=== PATIENT | male | born 1955 | race African-American/Black ===

== ENCOUNTER → 2019-11-16 12:51 | Outpatient (CLI) | payer MEDICARE, OTHER, SELFPAY ==
--- NOTE | ~2019-11-16 | CT_ITS ---
EXAMINATION: CT ankle RT wo con DATE: 11/16/2019 13:27 INDICATION: Right ankle pain. TECHNIQUE: Computed tomography (CT) of the right ankle was performed without intravenous contrast. Au tomated exposure control and iterative reconstruction technique were employed. The dose-length produc t was 180.40 mGy-cm. COMPARISON: Right foot MRI 06/14/2016 FINDINGS: Bone alignment is normal. No fracture. There is severe osteoarthritis of the ankle joint wi th loose bodies. There is moderate osteoarthritis of subtalar joint. There is a pseudoarthrosis betwe en the calcaneus and distal fibula. There is severe osteoarthritis of talonavicular joint with loose bodies. There is mild osteoarthritis of some of the midfoot joints. IMPRESSION: 1. Polyarticular osteoarthritis. Reviewed, dictated and finalized at location A. DRY ASSISTANT
== END ==
PROVIDERS: PCP Family Medicine
DX: M15.9 Polyosteoarthritis, unspecified (principal)
CPT/HCPCS: 73700

== ENCOUNTER 2020-02-04 11:58 | Inpatient (IN) | payer MEDICARE, OTHER, SELFPAY ==
[2020-02-04] VITALS (11 sets, daily range): BP systolic 122–169; BP diastolic 68–84; PULSE 78–93; RESP 14–25; TEMP 37.1–37.4; O2SAT 89–100; BMI 27.8
--- NOTE | ~2020-02-04 | CT_ITS ---
EXAMINATION: CT abdomen pelvis w con DATE: 02/05/2020 14:31 INDICATION: Right upper and lower quadrant pain. History of melanoma. Appendicitis. Diverticulitis. TECHNIQUE: Computed tomography (CT) of the abdomen and pelvis was performed with 100 cc Omnipaque 350 intravenous contrast. The dose-length product was 667.45 mGy-cm. Automated exposure control and iter ative reconstruction technique were employed. COMPARISON: None. FINDINGS: Moderate right pleural effusion which is likely loculated. Heart size normal. Small left pl eural effusion, also likely loculated. Bilateral lower lobe airspace disease, pneumonia versus atelec tasis. Heart size normal. No significant vascular abnormality. There is a liver cyst right hepatic lobe. The spleen, pancreas, adrenal glands and right kidney are u nremarkable. There is a 3.5 cm left renal cyst. Bladder is decompressed. Colonic diverticulosis witho ut evidence for diverticulitis. There is a penile pump with reservoir in the left rectus region. No a bnormal pelvic masses or fluid collections. Moderate-severe lumbar spondylosis. Nonobstructive bowel gas pattern. There are surgical changes of appendectomy. IMPRESSION: 1. Bibasilar airspace disease, right greater than left, pneumonia versus atelectasis. 2: Bilateral pleural effusions, likely loculated, right greater than left. Reviewed, dictated and finalized at location A. IMPRESSION: 1. Bibasilar airspace disease, right greater than left, pneumonia versus atelec tasis. 2: Bilateral pleural effusions, likely loculated, right greater than left.
--- NOTE | ~2020-02-04 | XR_ITS ---
XR chest 1V 02/04/2020 17:37 Indication: Loculated pleural effusion Procedure: AP view of the chest Comparison: 02/04/2020 Findings: Decreased size right pleural effusion bibasilar airspace disease, right greater than left. Cardiomegaly. No pneumothorax. There are degenerative changes of the shoulders. Impression: 1: Decreased size right pleural effusion postthoracentesis. No pneumothorax. 2: Bibasilar airspace disease which may represent pneumonia and/or atelectasis. Reviewed, dictated and finalized at location A. Impression: 1: Decreased size right pleural effusion postthoracentesis. No pneumothorax. 2: Bibasilar airspace disease which may represent pneumonia and/or atelectasis .
--- NOTE | ~2020-02-04 | CT_ITS ---
EXAMINATION: CTA chest PE protocol DATE: 02/04/2020 13:55 INDICATION: Shortness of breath. TECHNIQUE: Computed tomography angiography (CTA) of the chest was performed with 100 mL Omnipaque-350 intravenous contrast timed to evaluate the pulmonary arteries. Coronal maximum intensity projection 3D-reconstructions were created by the technologist. Automated exposure control and iterative reconst ruction technique were employed. The dose-length product was 512.28 mGy-cm. COMPARISON: Chest single view 02/04/2020 FINDINGS: There is a moderate-sized loculated right pleural effusion. There is peripheral passive ate lectasis in right middle lobe and right lower lobe. There is mild scarring at the lung apices. There is a 4.1 x 2.1 cm peripheral mass in laterobasal segment left lower lobe. There is mild atelectasis i n left lower lobe and lingula. There is a trace left pleural effusion. Cardiomegaly is noted. There i s no pulmonary embolus. There is a 2.9 cm cyst in the liver. There is moderate thoracic spondylosis. Thoracic levoscoliosis is noted. IMPRESSION: 1. No pulmonary embolus. 2. Moderate-sized loculated right pleural effusion. 3. Mass in left lung lower lobe, likely pneumonia. Follow-up radiographs are recommended to confirm r esolution and exclude malignancy. 4. Cardiomegaly. Reviewed, dictated and finalized at location A. IMPRESSION: 1. No pulmonary embolus. 2. Moderate-sized loculated right pleural effusion. 3. Mass in left lung lower lobe, likely pneumonia. Follow-up radiographs are re commended to confirm resolution and exclude malignancy. 4. Cardiomegaly.
--- NOTE | ~2020-02-04 | US_ITS ---
EXAMINATION: US thoracentesis DATE: 02/04/2020 17:48 CDT INDICATION: Right pleural effusion TECHNIQUE: The procedure for an ultrasound-guided thoracentesis was discussed with the patient. Risk s and benefits were detailed, including risks of bleeding, infection, pneumothorax and pain. The pat ient verbalized understanding and agreed to proceed following written consent. A time and out was performed to verify patient's name, date of , and type of procedure. The lef t lower quadrant of the abdomen was prepped and draped in usual manner. 1% lidocaine was used for lo eric anesthesia. A catheter was inserted into the right chest under ultrasound guidance into the pleu ral fluid. The fluid was removed with vacuum assistance. All needles were removed. The patient tolerated the procedure without immediate complication.] FINDINGS: Limited images of the abdomen demonstrates a moderate amount of left pleural effusion. Tammy roximately 500 cc of blood-tinged liquid was removed. IMPRESSION: 1. Successful ultrasound-guided right thoracentesis with removal of 500 cc of blood-tinged fluid. Fl uid delivered to the laboratory for appropriate evaluation as indicated by the clinical service. Reviewed, dictated and finalized at location A. IMPRESSION: 1. Successful ultrasound-guided right thoracentesis with removal of 500 cc of blood-tinged fluid. Fluid delivered to the laboratory for appropriate evaluatio n as indicated by the clinical service.
--- NOTE | ~2020-02-04 | XR_ITS ---
EXAMINATION: XR chest 1V portable INDICATION: Shortness of breath TECHNIQUE: Portable AP chest at 1238 hours COMPARISON: 11/12/2008 FINDINGS: There are airspace opacities of the lung bases and right midlung zone. A small right pleura l effusion is present. There is no pneumothorax. The heart size is upper limits of normal for techniq ue. There is a questionable nodule of the left lung base. There are surgical clips in the right axill a. IMPRESSION: 1. Airspace opacities of the right mid and lower lung zones, consistent with atelectasis versus pneum onia. 2. Small right pleural effusion. 3. Questionable nodule of the left lung base. Further evaluation with CT of the chest is recommended. Reviewed, dictated and finalized at location A. IMPRESSION: 1. Airspace opacities of the right mid and lower lung zones, consistent with at electasis versus pneumonia. 2. Small right pleural effusion. 3. Questionable nodule of the left lung base. Further evaluation with CT of the chest is recommended.
--- NOTE | ~2020-02-04 | US_ITS ---
EXAMINATION:US venous doppler LE BI INDICATION:Elevated d-dimer TECHNIQUE: Multiple grayscale, color flow and Doppler images of the lower extremity deep venous syste ms were obtained and reviewed. COMPARISON:Ultrasound dated 03/10/2009 FINDINGS: The common femoral, superficial femoral and popliteal veins demonstrate normal respiratory variation, augmentation and compressibility. Color flow is also seen within the posterior tibial, pe roneal, greater saphenous and profunda veins. IMPRESSION: 1: No lower extremity deep venous thrombosis. Reviewed, dictated and finalized at location A.
--- NOTE | 2020-02-04 12:28 | ED.SOB ---
HPI - SOB/Dyspnea General Chief Complaint: Shortness of Breath/Dyspnea Stated Complaint: SOB Time Seen by Provider: 02/04/20 12:05 Source: patient Mode of arrival: ambulatory Limitations: no limitations History of Present Illness HPI Narrative: This is a 64 year old male that presents to the ER for shortness of breath x 2 days. Reports shortness of breath with exertion. Also reports for the last 5 days he has been having some upper abdominal discomfort, especially at night. Reports a mild cough. Denies fever, chest pain, sore throat, nausea, vomiting, diarrhea, dysuria or hematuria. Related Data Home Medications Medication Instructions Recorded Confirmed allopurinol 100 mg PO DAILY 02/04/20 02/04/20 amlodipine 10 mg PO BID 02/04/20 02/04/20 diclofenac sodium 75 mg PO DAILY 02/04/20 02/04/20 hydrochlorothiazide 25 mg PO DAILY 02/04/20 02/04/20 lisinopril 40 mg PO DAILY 02/04/20 02/04/20 metoprolol succinate 100 mg PO BID 02/04/20 02/04/20 oxycodone-acetaminophen 1 tablet PO Q6H PRN 02/04/20 02/04/20 Allergies Allergy/AdvReac Type Severity Reaction Status Date / Time No Known Allergies Allergy Unverified 07/15/17 11:51 Review of Systems Review of Systems: Narrative: CONSTITUTIONAL: Denies fever ENT: Denies rhinorrhea, congestion, sore throat CARDIOVASCULAR: Denies chest pain, or edema. RESPIRATORY: Reports cough and dyspnea. GASTROINTESTINAL: Reports abdominal pain. Denies nausea, vomiting, or diarrhea. GENITOURINARY: Denies dysuria or hematuria. All systems reviewed & are unremarkable except as noted in HPI and below PMFSH Past Medical History Medical History (Updated 02/04/20 @ 19:34 by Charity Culp PA-C) Chronic anemia Essential hypertension Gout Melanoma Excised from right hand. Osteoarthritis Surgical History Surgical History (Updated 02/04/20 @ 16:21 by Mercy Conti PA-C) History of bilateral knee arthroplasty History of melanoma excision Right hand. Status post rotator cuff repair Bilateral. Family History Family History (Updated 02/04/20 @ 17:51 by Jaky Rubin RN) Mother Hypertension Father Malignant neoplasm of prostate Social History Social History (Updated 02/04/20 @ 16:22 by Mercy Conti PA-C) Social History: The patient lives in [place] with his . Smoking status: Light tobacco smoker Tobacco type: cigars Additional smoking assessment comments: Patient states he smokes cigars occasionally Alcohol intake: never Substance use: never Gender identity (if verbalized by the patient): Male Spiritual care concerns: No Agree to blood products: Yes Exam Narrative: Exam Narrative: GENERAL: Well-appearing, well-nourished, and in no acute distress. HEAD: Normocephalic, atraumatic. EYES: EOMI. ENT: Nares clear, no rhinorrhea or epistaxis. Mucous membranes moist. Oropharynx without tonsillar hypertrophy exudate or other lesions. Bilateral TMs pearly leon non-bulging NECK: Supple. No adenopathy or masses. CHEST: Diminished in the RLL. Rales in the LLL. No respiratory distress. No wheezes or rhonchi HEART: Regular rate and rhythm. No murmur heard. Normal peripheral pulses. ABDOMEN: Soft, nontender, nondistended, normal active bowel sounds. EXTREMITIES: Normal range of motion. No edema. SKIN: Warm, dry, no rash. NEURO: No focal deficits. Alert and oriented x3. PSYCH: Normal mood and affect Course Consultations Consultation #1: Spoke with hospitalist about patient and work-up who accepts admission Date: 02/04/20 Consultation #2: Spoke with pulmonology about patient and workup who would like diagnostic thoracentesis and patient to be on broad spectrum antibiotics (Vanc/Emepenem/Azithro). He will consult Date: 02/04/20 Vital Signs Vital signs: Vital Signs Temperature 99.3 F 02/04/20 12:03 Pulse Rate 93 02/04/20 12:03 Respiratory Rate 22 H 02/04/20 12:03 Blood Pressure 169/84 H 02/04/20 12:03 Pulse Oximetry 95
[2020-02-04 12:52] LABS: Basophils Percent Auto 0.3 % (0.2-1.2); Eosinophils Absolute Auto 0.2 K/mm3 (0-0.3); Eosinophils Percent Auto 1.2 % (0-4.4); Hematocrit 33.7 % (42.0-52.0); Immature Granulocyte Absolute 0.14 K/mm3 (0.00-0.031); Lymphocytes Absolute Auto 0.64 K/mm3 (0.9-3.2); Lymphocytes Percent Auto 4.5 % (18.3-44.2); Mean Corpuscular HGB Conc 32.6 g/dl (32-36); Mean Corpuscular Hemoglobin 30.3 pg (26-34); Mean Corpuscular Volume 92.8 fl (80-100); Mean Platelet Volume 9.9 fl (7.4-10.4); Monocytes Absolute Auto 1.7 K/mm3 (0.1-0.6); Monocytes Percent Auto 11.7 % (2.6-8.5); Neutrophils Absolute Auto 11.5 K/mm3 (1.3-6.7); Neutrophils Percent Auto 81.3 % (45.5-73.1); Platelet Count Result 330 k/mm3 (150-375); Red Blood Count 3.63 M/mm3 (4.6-6.20); Red Cell Distribution Width 12.8 % (11.5-14.5); White Blood Count 14.2 K/mm3 (4.5-10.0)
--- NOTE | 2020-02-04 12:53 | ECG_ITS ---
Measurements Intervals [place] Rate: 92 P: 36 KS: 212 QRS: -13 QRSD: 116 T: 39 QT: 383 QTc: 474 Interpretive Statements SINUS RHYTHM WITH FIRST DEGREE AV BLOCK VENTRICULAR PREMATURE COMPLEX INCOMPLETE RIGHT BUNDLE BRANCH BLOCK BORDERLINE T WAVE ABNORMALITY- ANTERIOR LEADS BASELINE WANDER- I, II, AVR, AVL, AVF, V1-V3 ABNORMAL ECG Electronically Signed On 02-04-2020 16:23:14 CDT by Bridger Bee D.O.
[2020-02-04 13:07] LABS: Alanine Aminotransferase 19 U/L (4-50); Alkaline Phosphatase 134 U/L (38-126); Aspartate Amino Transferase 27 U/L (17-59); Bilirubin,Total 0.6 mg/dL (0.2-1.3); Blood Urea Nitrogen 16 mg/dL (9-20); Calcium 9.6 mg/dL (8.4-10.2); Carbon Dioxide 32 mmol/L (22-30); Chloride 98 mmol/L (98-107); Estimated CRCL calculation 54 ml/min; Estimated Glomerular Filt Rate > 60; Glucose 109 mg/dL (75-110); Potassium 3.7 mmol/L (3.4-5.0); Sodium 135 mmol/L (137-145)
[2020-02-04 13:08] LABS: Lactic Acid Reflex 1.9 mmol/L (0.7-2.1)
[2020-02-04 13:08] LABS: Lipase 32 U/L (23-300)
[2020-02-04 13:14] LABS: NT Pro B Type Natriuretic Pept 360 PG/ML (5-100)
[2020-02-04 13:20] LABS: D Dimer 3.81 ug/mL (<0.48)
[2020-02-04 13:22] LABS: Add Urine Microscopic? YES; Appearance Urine Clear (Clear); Bilirubin Urine Negative (Negative); Blood Urine Negative (Negative); Color Urine Yellow (Yellow); Glucose Urine UA Negative (Negative); Ketones Urine Negative (Negative); Leukocyte Esterase Ur Negative LEU/UL (Negative); Mucus Urine Rare /lpf; Nitrate Urine Negative (Negative); Protein Urine 2+ mg/dL (Negative); RBC Urine 0-2 /hpf (0-2); Specific Grav Ur 1.023 (1.001-1.035); Squamous Epithelial Cell Urine Rare /hpf (Few); WBC Urine 0-3 /hpf
[2020-02-04 14:21] LABS: Lactate Dehydrogenase 386 U/L (313-618)
[2020-02-04 14:51] LABS: CRP > 45.0 mg/dL (<1.0)
[2020-02-04] MEDS: ACETAMINOPHEN 500 MG TABLET 1000 MG PO (15:25)
[2020-02-04 16:20] LABS: INR 1.1; Prothrombin Time 13.9 Seconds (11.1-14.7)
[2020-02-04 16:21] LABS: Partial Thromboplastin Time 43.5 SECONDS (22.3-36.8)
--- NOTE | 2020-02-04 17:40 | PC.NURSE ---
This patient, Ritchie Keane Jr, was admitted to [facility] Surg Room 332-01. Patient/family oriented to hospital policies and general routines including ID bracelet, bed and alarms, visiting hours, pain management, procedures, bathroom and other care routines, personal items, smoking policy, room service/diet, and visiting hours. Valuables list has been completed. Information on how to activate the Rapid Response Team has been discussed. Patient/Family are encouraged to report perceived risks to care and to ask questions if they do not understand what they are told or what they should do.
--- NOTE | 2020-02-04 18:00 | PM.IMHP ---
H&P: HPI History of Present Illness Chief complaint: Shortness of breath. 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 For the past 3 days, he notes progressive dyspnea on lesser and lesser exertion as well as right lateral pleuritic chest pain. Chest x-ray showed a small right pleural effusion with airspace opacities in the right mid and lower lung zones consistent with atelectasis versus pneumonia as well as a questionable nodule at the left lung base. A subsequent CTA of the chest showed a moderate size, loculated right pleural effusion and notes that the possible left lower lung mass was likely pneumonia. To his knowledge, he has no history of cirrhosis or congestive heart failure. He told ER provider that he had a mild cough, but denies that to me. His appetite has been a bit decreased over the past couple of days, which she attributes to the pleuritic pain. No recent travel or sick contacts. Denies anosmia and dysgeusia. His weight has remained stable. He was treated for melanoma in 2000, and at that time he was told he probably had only 6 months to live as it was metastatic to the lymph nodes. He had close follow-up for 5 years, and felt that he was cancer free and he has not had follow-up since that time. No fever, chills, or sweats. He denies exertional chest pain, orthopnea, palpitations, and lower extremity edema. No history of venous thromboembolism. Denies obvious lymphadenopathy. He is status post thoracentesis at the time my evaluation, and reports improvement with his shortness of breath. Has only mild discomfort at the needle insertion site. Review of Systems Review of Systems: Narrative: Twelve systems were reviewed with pertinent positives and negatives as per HPI. No fever, chills, or sweats. No sinus congestion, rhinorrhea, otalgia, or odynophagia. No history of coronary artery disease or congestive heart failure. No orthopnea, PND, or lower extremity edema. No history of venous thromboembolism. Denies diarrhea. No dysuria. Except as documented, all other systems were reviewed and are negative. [facility] Past Medical History Medical History (Updated 02/04/20 @ 21:36 by Mercy Conti PA-C) Chronic anemia Essential hypertension Gout Melanoma Of the right 5th finger, which was completely excised as well as sentinel lymph node sampling, which was reportedly positive. He received chemotherapy for 1 year in 2000. Osteoarthritis Surgical History Surgical History (Updated 02/04/20 @ 21:38 by Mercy Conti PA-C) History of bilateral knee arthroplasty History of melanoma excision Resected in 2000, with 5th finger amputation and sentinel lymph node dissection. Status post rotator cuff repair Bilateral. Family History Family History Mother Hypertension Father Malignant neoplasm of prostate Social History Social History (Updated 02/04/20 @ 21:49 by Mercy Conti PA-C) Social History: Surrogate decision maker: Cathie Keane. Code status: Full code. Smoking status: Light tobacco smoker Tobacco type: cigars Additional smoking assessment comments: Smokes 5 cigars a week. Alcohol intake: never Substance use: never Additional living arrangements comments: Patient lives with in [place]. 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 Spiritual care concerns: No Agree to blood products: Yes Meds Home Medications and Allergies Home Medications Medication Instructions Recorded Confirmed Type allopurinol 100 mg PO DAILY 02/04/20 02/04/20 History amlodipine 10 mg PO BID 02/04/20 02/04/20 History diclofenac sodium 75 mg PO DAILY 02/04/20 02/04/20 H
[2020-02-04 18:31] LABS: Appearance Pleural Fluid Cloudy (Clear); Color Pleural Fluid Yellow (Colorless); Pleural fluid source Pleural fluid
[2020-02-04 18:33] LABS: Nucleated Cell Pleural Fluid 7365 /uL (0-1000)
[2020-02-04 18:40] LABS: Lymphocytes Pleural Fluid 3 %; Monocytes Pleural Fluid 3 %; Neutrophils Pleural Fluid 94 % (0-25); RBC Pleural Fluid 4514 /uL (0-0)
[2020-02-04] MEDS: AMLODIPINE BESYLATE 5 MG TABLET 10 MG PO (22:57)
[2020-02-04] MEDS: METOPROLOL SUCCINATE EXT REL 100 MG TABCR PO (22:58)
[2020-02-05] VITALS (14 sets, daily range): BP systolic 129–149; BP diastolic 50–89; PULSE 81–104; RESP 18; TEMP 37.3–38.7; O2SAT 90–96
[2020-02-05 05:39] LABS: Basophils Percent Auto 0.2 % (0.2-1.2); Eosinophils Absolute Auto 0.3 K/mm3 (0-0.3); Eosinophils Percent Auto 2.5 % (0-4.4); Hematocrit 32.1 % (42.0-52.0); Hemoglobin 10.6 g/dL (14.0-18.0); Immature Granulocyte Absolute 0.15 K/mm3 (0.00-0.031); Immature Granulocyte Percent A 1.2 % (0-0.5); Lymphocytes Absolute Auto 0.99 K/mm3 (0.9-3.2); Lymphocytes Percent Auto 7.6 % (18.3-44.2); Mean Corpuscular Volume 90.9 fl (80-100); Mean Platelet Volume 9.9 fl (7.4-10.4); Monocytes Absolute Auto 1.4 K/mm3 (0.1-0.6); Monocytes Percent Auto 11.1 % (2.6-8.5); Neutrophils Percent Auto 77.4 % (45.5-73.1); Platelet Count Result 315 k/mm3 (150-375); Red Blood Count 3.53 M/mm3 (4.6-6.20); Red Cell Distribution Width 12.9 % (11.5-14.5)
[2020-02-05 06:00] LABS: Blood Urea Nitrogen 11 mg/dL (9-20); Calcium 8.9 mg/dL (8.4-10.2); Carbon Dioxide 29 mmol/L (22-30); Chloride 101 mmol/L (98-107); Estimated CRCL calculation 75 ml/min; Estimated Glomerular Filt Rate > 60; Glucose 102 mg/dL (75-110); Potassium 3.4 mmol/L (3.4-5.0); Sodium 135 mmol/L (137-145)
[2020-02-05] MEDS: hydroCHLOROthiazide 25 MG TABLET PO (08:43)
[2020-02-05] MEDS: AMLODIPINE BESYLATE 5 MG TABLET 10 MG PO ×2 (08:43→21:04)
[2020-02-05] MEDS: lisinopriL 20 MG TABLET 40 MG PO (08:43)
[2020-02-05] MEDS: METOPROLOL SUCCINATE EXT REL 100 MG TABCR PO ×2 (08:43→21:04)
[2020-02-05] MEDS: allopurinoL 100 MG TABLET PO (08:43)
[2020-02-05 11:40] LABS: Lactate Dehydrogenase 371 U/L (313-618)
--- NOTE | 2020-02-05 12:59 | PM.CNPUL ---
Assessment and Plan Assessment and plan (1) Loculated pleural effusion: Code(s): J90 - Pleural effusion, not elsewhere classified Status: Acute Assessment and Plan: s/p thoracentesis. will evaluate chemistry, negative for malignant cells although yeild is 50% at best and hence malignancy has not been ruled out. - continue Carbapeneum and Vancomycin for 7 days - f/u CT scan in 6-7 days (2) Lung mass: Code(s): R91.8 - Other nonspecific abnormal finding of lung field Status: Acute Assessment and Plan: LLL lung mass. While this could be pneumonia, it is suspcious for malignancy especially in light of history of malignant melenoma. - recommend repeating CT chest next 02/11/20 after 6-7 days of broad spectrum antibiotics. If no improvement I would strongly recommend proceeding to CT guided biopsy to r/o malignancy - he should stay inpatient for antibiotic therapy. History of Present Illness History of Present Illness Consult date: 02/05/20 Chief complaint: Shortness of breath. Narrative: 64 y/o male presents with dyspnea on exertion but no cough, no chest tightness, no chills night sweats or fever or diarrhea, some right sided pleuritic chest pain for the past 3-4 days. He says pain started in the RL quadrant. He denies hemoptysis or weight loss. He has a history of right hand melenoma with lymphangetic spread to right arm diagnosed in 2000. It was treated with chemotherapy and went into remission according to him after a year of treatment. He continue to have monitoring and surviellance for a few years after that. he smokes 1 cigar/day and prior to that smoke cigaretes socially. He is also exposed to his 's second smoke for many years. CT chest yesterday showed a moderated sized pleural effusion with compressive ateleactasis of the RLL. It also showed a LLL dense mass about 4 cm in size. No prior CT scans or CXRs are available for comparison. He underwent a diagnostic US guided thoracentesis and approximately 500 cc of bloody fluid was drained and was negative for malignant cells. Other culture and chemistry studies are pending. Review of Systems Review of Systems: All systems reviewed & are unremarkable except as noted in HPI and below PMFSH Past Medical History Medical History (Updated 02/05/20 @ 13:10 by Taurus Urias MD) Chronic anemia Essential hypertension Gout Melanoma Of the right 5th finger, which was completely excised as well as sentinel lymph node sampling, which was reportedly positive. He received chemotherapy for 1 year in 2000. Osteoarthritis Surgical History Surgical History (Updated 02/04/20 @ 21:38 by Mercy Conti PA-C) History of bilateral knee arthroplasty History of melanoma excision Resected in 2000, with 5th finger amputation and sentinel lymph node dissection. Status post rotator cuff repair Bilateral. Family History Family History Mother Hypertension Father Malignant neoplasm of prostate Social History Social History (Updated 02/04/20 @ 21:49 by Mercy Conti PA-C) Social History: Surrogate decision maker: Cathie Keane. Code status: Full code. Smoking status: Light tobacco smoker Tobacco type: cigars Additional smoking assessment comments: Smokes 5 cigars a week. Alcohol intake: never Substance use: never Additional living arrangements comments: Patient lives with in [place]. 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 Spiritual care concerns: No Agree to blood products: Yes Meds Home Medications and Allergies Home Medications Medication Instructions Recorded Confirmed Type allopurinol 100 mg PO DAILY 02/04/20 02/04/20 History amlodipine 10 mg PO BID 02/04/20 02/04/20 History diclofenac sodium 75 mg PO DAILY 02/04/20 02/04/20 History hydro
[2020-02-05 13:30] LABS: SARS-CoV-2 RNA PCR Negative
--- NOTE | 2020-02-05 15:34 | PM.IMPN ---
Progress Note: A&P Assessment and Plan (1) Left lower lobe pneumonia: Qualifiers: Pneumonia type: due to unspecified organism Qualified Code(s): J18.9 - Pneumonia, unspecified organism Code(s): J18.9 - Pneumonia, unspecified organism Status: Acute Assessment and Plan: -----pneumonia versus malignancy. I spoke to the radiologist who believes this is pneumonia. His pleural pH is low and he may need a chest tube. Since we do not do those here I contacted [facility] which has accepted him to a medicine bed. Continue azithromycin, imipenem, and vancomycin at this time. COVID negative. Continue albuterol as needed. Patient's symptoms have significantly improved since his thoracentesis. White count trending down (2) Loculated pleural effusion: Code(s): J90 - Pleural effusion, not elsewhere classified Status: Acute Assessment and Plan: -----above. Plan to transfer to [facility]. I spoke with pulmonology (3) Cardiomegaly: Code(s): I51.7 - Cardiomegaly Status: Acute Assessment and Plan: -----will need echo but this was deferred until his COVID-19 testing was back. He does not appear fluid overloaded at this time. He should have this completed outpatient. BNP mildly elevated (4) Essential hypertension: Code(s): I10 - Essential (primary) hypertension Status: Acute Assessment and Plan: -----last blood pressure 149/71. Continue Norvasc, hydrochlorothiazide, metoprolol and lisinopril (5) Chronic anemia: Code(s): D64.9 - Anemia, unspecified Status: Acute Assessment and Plan: -------Hemoglobin and hematocrit are stable on review of previous labs. Will continue to monitor. Time Spent With Patient Time with patient: 25 - 35 minutes Subjective Date/time seen: 02/05/20 15:34 Interval history: Pt is a 64-year-old male here for pleural effusion and pneumonia. Patient was seen today and says is feeling better compared to yesterday but still feeling shortness breath at times. He is still coughing as well. He denies chest pain, abdominal pain, diarrhea, constipation, nausea or vomiting. He said he had his cancer treatments at [facility]. Review of Systems Review of Systems: All systems reviewed & are unremarkable except as noted in HPI and below Exam Narrative: Exam Narrative: General: Well developed well nourished patient in NAD in no acute distress HEENT: normocephalic Neck: supple Neuro: Alert and oriented x4 CV:RRR telemetry shows bigeminy occasionally. Resp: Decreased breath sounds in the right lobe. Abd: Soft, non distended. No pain to palpation. Positive bowel sounds Extremities: No swelling, erythema, or pain to palpation. Objective Data Vital Signs Vital Signs: Vital Signs - 24 hr 02/04/20 15:46 02/04/20 16:00 02/04/20 16:31 Temperature Pulse Rate 89 86 89 Respiratory Rate 19 24 H 22 H Blood Pressure 137/77 126/68 Pulse Oximetry 93 95 02/04/20 17:40 02/04/20 17:41 02/04/20 20:00 Temperature 99 F Pulse Rate 85 81 79 Respiratory Rate 14 20 Blood Pressure 122/82 127/76 Pulse Oximetry 95 90 02/04/20 22:00 02/04/20 22:58 02/05/20 00:00 Temperature 98.8 F Pulse Rate 80 78 84 Respiratory Rate 18 Blood Pressure 148/73 H Pulse Oximetry 100 02/05/20 02:00 02/05/20 04:00 02/05/20 05:20 Temperature 99.2 F Pulse Rate 85 81 Respiratory Rate 18 Blood Pressure 134/58 L Pulse Oximetry 95 96 02/05/20 07:34 02/05/20 08:00 02/05/20 08:43 Temperature 99.6 F Pulse Rate 82 104 H 98 Respiratory Rate 18 Blood Pressure 148/50 H Pulse Oximetry 96 96 02/05/20 10:00 02/05/20 14:00 Temperature 99.7 F H 99.6 F Pulse Rate 86 84 Respiratory Rate 18 18 Blood Pressure 129/89 149/71 H Pulse Oximetry 94 90 Intake/Output Intake/Output: Intake & Output 02/02/20 02/03/20 02/04/20 02/05/20 23:59 23:59 23:59 23:59 Intake Total 400 500 O
--- NOTE | 2020-02-05 18:35 | ECHO_ITS ---
Patient Info Name: Ritchie Keane Age: 64 years : 1955 Gender: Male Ht: 74 in Wt: 217 lbs BSA: 2.28 m2 HR: 81 bpm BP: 134 / 58 mmHg Heart Rhythm: Sinus Rhythm Technical Quality: Good Exam Date: 02/05/2020 4:07 PM Exam Location: [facility] Patient Status: Inpatient Admit Date: 02/04/2020 Staff Ordering Physician: Mercy Conti PA-C Chief Deputy Court Clerk: Ritchie Martinez RDCS Attending Provider: Zamzam Mike PA-C Referring Physician: Gallito ARANGO; Exam Type: CA echo doppler color flow Study Info Indications R06.02 - Shortness of breath Complete two-dimensional, color flow and Doppler transthoracic echocardiogram is performed. History/Risk Factors Cardiomegaly, HTN, SOB. Summary 1. Left ventricular chamber dimension is normal. 2. Left ventricular systolic function is normal, estimated at 60-65%. 3. The left ventricular diastolic function is grade II diastolic dysfunction. 4. E/e' 11 is mildly elevated. 5. Left atrial chamber dimension is mildly enlarged. 6. There is trace tricuspid valve regurgitation. 7. No pulmonary hypertension, estimated pulmonary arterial systolic pressure is 35 mmHg. Left Ventricle E/e' 11 is mildly elevated. Left ventricular chamber dimension is normal. Left ventricular systolic function is normal, estimated at 60-65%. The left ventricular diastolic function is grade II diastolic dysfunction. Right Ventricle Right ventricular chamber dimension is normal. Right ventricular systolic function is normal. Left Atria Left atrial chamber dimension is mildly enlarged. Right Atria Right atrial chamber dimension is normal. Aortic Valve The aortic valve is trileaflet. There is no aortic valve stenosis. There is no aortic valve regurgitation. Pulmonic Valve There is no pulmonic regurgitation. Mitral Valve There is no mitral valve stenosis. There is no mitral valve regurgitation. Tricuspid Valve There is trace tricuspid valve regurgitation. No pulmonary hypertension, estimated pulmonary arterial systolic pressure is 35 mmHg. Pericardium/Pleural There is no pericardial effusion. Inferior Vena Cava Normal inferior vena cava with >50% collapse upon inspiration consistent with normal right atrial pressure, 5 mmHg. Aorta The aortic root size at the sinus of Valsalva is normal. Left Ventricular Outflow Tract Name Value Normal LVOT 2D LVOT Diameter 2.2 cm LVOT Doppler LVOT Peak Gradient 9 mmHg LVOT Mean Gradient 4 mmHg LVOT VTI 27 cm LVOT VTI/AV VTI Ratio 0.8 LVOT Stroke Volume 102 ml LVOT CO 8.3 l/min LVOT CI 3.7 l/min/m2 Mitral Valve Name Value Normal MV Doppler
[2020-02-05] MEDS: ACETAMINOPHEN 325 MG TABLET 650 MG PO (23:31)
[2020-02-06] VITALS (16 sets, daily range): BP systolic 102–137; BP diastolic 54–85; PULSE 70–85; RESP 18–20; TEMP 37.2–38.3; O2SAT 94–98
[2020-02-06 06:03] LABS: Hematocrit 30.6 % (42.0-52.0); Hemoglobin 10.3 g/dL (14.0-18.0); Mean Corpuscular HGB Conc 33.7 g/dl (32-36); Mean Corpuscular Hemoglobin 30.4 pg (26-34); Mean Corpuscular Volume 90.3 fl (80-100); Mean Platelet Volume 9.7 fl (7.4-10.4); Platelet Count Result 361 k/mm3 (150-375); Red Blood Count 3.39 M/mm3 (4.6-6.20); Red Cell Distribution Width 13.2 % (11.5-14.5); White Blood Count 13.4 K/mm3 (4.5-10.0)
[2020-02-06 06:19] LABS: Blood Urea Nitrogen 12 mg/dL (9-20); Calcium 8.8 mg/dL (8.4-10.2); Carbon Dioxide 31 mmol/L (22-30); Chloride 97 mmol/L (98-107); Estimated CRCL calculation 63 ml/min; Estimated Glomerular Filt Rate > 60; Glucose 101 mg/dL (75-110); Magnesium 2.5 mg/dL (1.6-2.3); Potassium 3.2 mmol/L (3.4-5.0); Sodium 133 mmol/L (137-145)
[2020-02-06] MEDS: ACETAMINOPHEN 325 MG TABLET 650 MG PO (06:56)
[2020-02-06] MEDS: METOPROLOL SUCCINATE EXT REL 100 MG TABCR PO ×2 (08:02→20:28)
[2020-02-06] MEDS: hydroCHLOROthiazide 25 MG TABLET PO (08:02)
[2020-02-06] MEDS: allopurinoL 100 MG TABLET PO (08:02)
[2020-02-06] MEDS: lisinopriL 20 MG TABLET 40 MG PO (08:03)
[2020-02-06] MEDS: AMLODIPINE BESYLATE 5 MG TABLET 10 MG PO ×2 (08:05→20:29)
[2020-02-06] MEDS: POTASSIUM CHLORIDE 20 MEQ TABLET 40 MEQ PO (09:37)
[2020-02-06] MEDS: INDOMETHACIN 25 MG CAPSULE PO ×2 (10:50→20:29)
[2020-02-06 12:48] LABS: Vancomycin Trough 13.4 ug/mL (10.0-20.0)
--- NOTE | 2020-02-06 15:46 | PM.PNPUL ---
Progress Note: A&P Assessment and Plan (1) Loculated pleural effusion: Code(s): J90 - Pleural effusion, not elsewhere classified Status: Acute Assessment and Plan: Will need small bore chest tube place with intrapleural TPA. I could do this procedure but I'm told we may not have all the resources to do so here and hence the patient is being transferred to [facility] (2) Bilateral pneumonia: Code(s): J18.9 - Pneumonia, unspecified organism Status: Acute Assessment and Plan: Continue Vancomycin, Carbapenem and Azithromycin for 7-10 days. Will need f/u CT chest next week Time Spent With Patient Time with patient: 25 - 35 minutes Subjective Date/time seen: 02/06/20 15:46 Interval history: Going to [facility] today. Will need small bore chest tube with intrapleural TPA which I'm told is difficult to do here. Review of Systems Review of Systems: All systems reviewed & are unremarkable except as noted in HPI and below Exam Const: General: no acute distress and uncomfortable Other: complains of RLQ and RUQ pain radiating to right flank area HENMT: Mouth: Yes moist mucous membranes Eyes: General: appearance normal, both eyes and all related structures Neck: Neck: supple and no JVD Resp: Auscultation: no crackles, no rales, no rhonchi, no wheezes and diminished lung sounds Cardio: Rate: regular rate Rhythm: regular rhythm Heart sounds: no gallops and no murmurs GI: GI Palp: Yes Soft to palpation Auscultation: normal bowel sounds Skin: General skin exam: normal color and no rashes or lesions noted Neuro: General: gait normal Speech: normal speech Extrem: General: normal to inspection and no pedal edema Right upper extremity: edema (chronic RUE lymphedema ) Psych: Mental Status: mental status grossly normal Affect: normal affect Objective Data Vital Signs Vital Signs: Vital Signs - 24 hr 02/05/20 16:00 02/05/20 21:04 02/05/20 22:00 Temperature 38.7 C H Pulse Rate 81 84 85 Respiratory Rate 18 Blood Pressure 142/71 H Pulse Oximetry 93 02/05/20 22:30 02/05/20 23:31 02/06/20 00:00 Temperature 38.7 C H Pulse Rate 81 83 Respiratory Rate Blood Pressure Pulse Oximetry 02/06/20 00:35 02/06/20 02:00 02/06/20 04:00 Temperature 37.6 C 37.2 C Pulse Rate 70 70 Respiratory Rate 18 Blood Pressure 102/54 L Pulse Oximetry 95 02/06/20 06:00 02/06/20 06:56 02/06/20 08:00 Temperature 38.3 C H 38.3 C H Pulse Rate 83 83 Respiratory Rate 20 20 Blood Pressure 130/75 Pulse Oximetry 94 94 02/06/20 10:00 02/06/20 12:00 02/06/20 14:00 Temperature 37.2 C 37.2 C Pulse Rate 85 79 76 Respiratory Rate 18 18 Blood Pressure 129/75 127/72 Pulse Oximetry 98 94 Intake/Output Intake/Output: Intake & Output 02/03/20 02/04/20 02/05/20 02/06/20 23:59 23:59 23:59 23:59 Intake Total 400 2880 1190 Output Total 500 1200 820 Balance -100 1680 370 Meds/Results Medications: Active Medications Generic Name Dose Route Start Last Admin Trade Name Freq PRN Reason Stop Dose Admin Acetaminophen 650 mg 02/05/20 23:05 02/06/20 06:56 Tylenol Tablet PO 650 mg Q6H PRN Administration Pain or Fever Albuterol 2 puff 02/04/20 21:47 Proventil Hfa INHALATION QIDRT PRN Shortness Of Breath Allopurinol 100 mg 02/05/20 08:00 02/06/20 08:02 Zyloprim PO 100 mg DAILY@0800 [facility] Administration Amlodipine Besylate 10 mg 02/05/20 09:00 02/06/20 08:05 Norvasc PO 5 mg Q12HR RADHA Administration Hydrochlorothiazide 25 mg 02/05/20 09:00 02/06/20 08:02 Hydrochlorothiazide PO 25 mg DAILY [facility] Administration Imipenem/Cilastatin Sodium 500 mg in 100 mls @ 300 mls/hr 02/04/20 21:50 02/06/20 11:43 Primaxin 500 Mg/D5w 100 Ml IVPB Infused Q6HR [facility] Infusion Vancomycin HCl 1,750 mg in 500 mls @ 250 mls/hr 02/07/20 00:00 Vancomycin 1,750 Mg/D5w 500 Ml IVPB Q12H [facility] Indomethacin 25 mg
--- NOTE | 2020-02-06 16:11 | PM.TDS ---
Transfer Discharge Sum: Prov Provider Date of admission: 02/04/20 16:08 Primary care physician: Kathleen Artis, Admitting clinician: Junior Michel MD Consults: 02/04/20 16:09 Consult to Physician Routine Comment: Consulting Provider: Taurus Urias Reason for consultation: pleural effusion, pneumonia Has provider been notified: Yes Attending physician on discharge: Med Oates Discharging clinician: Zamzam Mike Receiving physician/facility: [facility]-unknown physician DS: Diagnosis Admitting Diagnosis Admitting Diagnosis: Pneumonia, unspecified organism Discharge Diagnosis (1) Left lower lobe pneumonia: Qualifiers: Pneumonia type: due to unspecified organism Qualified Code(s): J18.9 - Pneumonia, unspecified organism Code(s): J18.9 - Pneumonia, unspecified organism Status: Acute Assessment and Plan: -----pneumonia versus malignancy. I spoke to the radiologist who believes this is pneumonia. His pleural pH is low and he may need a chest tube. Since we do not do those here I contacted [facility] which has accepted him to a medicine bed. He was given azithromycin, imipenem, and vancomycin. COVID negative. No growth so far on micro. Pt continues to run a fever 100.0 at transfer. Patient's symptoms have significantly improved since his thoracentesis but still present. pt was transfered in stable condition to [facility]. Pt has a hx of melanoma and got his cancer treatment therapy. Pleural Cytology negative for malignancy. (2) Loculated pleural effusion: Code(s): J90 - Pleural effusion, not elsewhere classified Status: Acute Assessment and Plan: -----above. (3) Cardiomegaly: Code(s): I51.7 - Cardiomegaly Status: Acute Assessment and Plan: -----echo completed, systolic function normal with grade 2 diastolic dysfunction. No pulmonary hypertension. (4) Essential hypertension: Code(s): I10 - Essential (primary) hypertension Status: Acute Assessment and Plan: -----last blood pressure 137/69. Continue Norvasc, hydrochlorothiazide, metoprolol and lisinopril (5) Chronic anemia: Code(s): D64.9 - Anemia, unspecified Status: Acute Assessment and Plan: -------Hemoglobin and hematocrit are stable on review of previous labs. Will continue to monitor. Transfer Discharge Sum: Med Medications Active and Home Medications: Home Medications allopurinol 100 mg PO DAILY 02/04/20 [History Confirmed 02/04/20] amlodipine 10 mg PO BID 02/04/20 [History Confirmed 02/04/20] diclofenac sodium 75 mg PO DAILY 02/04/20 [History Confirmed 02/04/20] hydrochlorothiazide 25 mg PO DAILY 02/04/20 [History Confirmed 02/04/20] lisinopril 40 mg PO DAILY 02/04/20 [History Confirmed 02/04/20] metoprolol succinate 100 mg PO BID 02/04/20 [History Confirmed 02/04/20] oxycodone-acetaminophen 1 tablet PO Q6H PRN 02/04/20 [History Confirmed 02/04/20] Active Medications Acetaminophen (Tylenol Tablet) 650 mg PO Q6H PRN PRN Reason: Pain or Fever Last Admin: 02/06/20 06:56 Dose: 650 mg Documented by: Albuterol (Proventil Hfa) 2 puff INHALATION QIDRT PRN PRN Reason: Shortness Of Breath Allopurinol (Zyloprim) 100 mg PO DAILY@0800 RAD[facility] Last Admin: 02/06/20 08:02 Dose: 100 mg Documented by: Amlodipine Besylate (Norvasc) 10 mg PO Q12HR RADHA Last Admin: 02/06/20 08:05 Dose: 5 mg Documented by: Hydrochlorothiazide (Hydrochlorothiazide) 25 mg PO DAILY RADHA Last Admin: 02/06/20 08:02 Dose: 25 mg Documented by: Imipenem/Cilastatin Sodium (Primaxin 500 Mg/D5w 100 Ml) 500 mg in 100 mls @ 300 mls/hr IVPB Q6HR RADHA Last Infusion: 02/06/20 11:43 Dose: Infused Documented by: Vancomycin HCl (Vancomycin 1,750 Mg/D5w 500 Ml) 1,750 mg in 500 mls @ 250 mls/hr IVPB Q12H [facility] Indomethacin (Indocin) 25 mg PO TIDWM PRN PRN Reason: pluretic pain Last Admin: 02/06/20 10:50 Dose: 25 mg Documen
--- NOTE | 2020-02-06 18:04 | PC.NURSE ---
Maritza Bray attempted to locate patients lost phone. She called dietary, housekeeping and checked in patients room and the room they were previously in. The phone was not located.
[2020-02-06 18:06] LABS: Glucose Pleural Fluid 40 mg/dL; LDH Pleural Fluid 1960 U/L; Total Protein Pleural Fluid 4.5 g/dL
[2020-02-07] VITALS: PULSE 77
[2020-02-08 21:02] LABS: Albumin Pleural Fluid 2.2 g/dL
== END 2020-02-07 00:20 | disposition short-term general hospital (02) | DRG 194 ==
LOC: ANHED 16:13 → ANH3MEDSUR 16:34
PROVIDERS: Physician Assistant; Admitting Provider Family Medicine; Emergency Provider Family Medicine; PCP Family Medicine; Visit Provider Internal Medicine
DX: J18.9 Pneumonia, unspecified organism (principal); J90 Pleural effusion, not elsewhere classified; D64.9 Anemia, unspecified; I10 Essential (primary) hypertension; I51.7 Cardiomegaly; M10.9 Gout, unspecified; M19.90 Unspecified osteoarthritis, unspecified site; F17.290 Nicotine dependence, other tobacco product, uncomplicated; Z20.828 Contact with and (suspected) exposure to other viral communicable diseases; Z96.653 Presence of artificial knee joint, bilateral; Z85.820 Personal history of malignant melanoma of skin; Z85.89 Personal history of malignant neoplasm of other organs and systems; Z89.029 Acquired absence of unspecified finger(s)
CPT/HCPCS: 32555; 36415; 71045; 71275; 74177; 80048; 80053; 80202; 81001; 82042; 82728; 82945; 83605; 83615; 83690; 83735; 83880; 83986; 84157; 85025; 85027; 85380; 85610; 85730; 86140; 87040; 87070; 87075; 87205; 87635; 87804; 88104; 88108; 88305; 89051; 93005; 93306; 93970; 96365; 96367; 99285; A9270; J0456; J0696; J0743; J3370; Q9967; U0003

== ENCOUNTER 2022-02-15 08:25 | Outpatient (CLI) | payer MEDICARE, SELFPAY ==
--- NOTE | ~2022-02-15 | XR_ITS ---
XR chest 2V DATE: 02/15/2022 08:59 INDICATION: Hemoptysis TECHNIQUE: PA and lateral views COMPARISON: 02/04/2020 AP chest 02/04/2020 CTA chest 11/12/2008 PA and lateral chest FINDINGS: There is chronic blunting of the right costophrenic angle. Cardiac magnet. Mild aortic unfo lding. No pulmonary infiltrate or consolidation, pleural effusion or pulmonary vascular congestion or pneumo thorax is detected. Surgical clips, right axillary area. Degenerative spurring and minimal scoliosis of thoracic spine. Bilateral rotator cuff atrophy. IMPRESSION: No active pulmonary disease Cardiomegaly Chronic right costophrenic angle blunting Reviewed, dictated and finalized at location A.
== END 2022-02-15 08:26 | disposition home or self-care (01) ==
PROVIDERS: PCP Family Medicine; Visit Provider Physician Assistant
DX: R04.2 Hemoptysis (principal); I51.7 Cardiomegaly
CPT/HCPCS: 71046

== ENCOUNTER → 2022-05-18 02:57 | Outpatient (CLI) | payer MEDICARE, SELFPAY ==
[2022-05-18 11:20] LABS: SARS-CoV-2 RNA PCR Negative
== END ==
PROVIDERS: PCP Family Medicine; Visit Provider Family Medicine
DX: Z20.822 Contact with and (suspected) exposure to COVID-19 (principal)
CPT/HCPCS: C9803; U0003; U0005

== ENCOUNTER 2022-08-28 16:50 | Emergency (ER) | payer MEDICARE, SELFPAY ==
--- NOTE | 2022-08-28 16:58 | ED.DENTAL ---
HPI - Dental/Oral General Chief complaint: Dental/Oral Stated complaint: rt side ear and jaw pain Time Seen by Provider: 08/28/22 16:58 Source: patient Mode of arrival: ambulatory Limitations: no limitations History of Present Illness HPI Narrative: Mr. Keane is a 67-year-old male patient presenting to clinic today with complaints of right-sided ear and jaw pain times 2-3 day. He reports no known injury. Reports that the pain is in the right upper jaw and radiating into the ear and down the jawline. Pain is worse with chewing. He denies any dental pain. He reports that the pain got worse today where he feels as though he can not eat anything due to the pain. Stated he tried some chewing gum yesterday and this improved some Related Data Home Medications Medication Instructions Recorded Confirmed allopurinol 100 mg tablet 100 mg PO DAILY 02/04/20 02/04/20 amlodipine 10 mg tablet 10 mg PO BID 02/04/20 02/04/20 diclofenac sodium 75 mg 75 mg PO DAILY 02/04/20 02/04/20 tablet,delayed release hydrochlorothiazide 25 mg tablet 25 mg PO DAILY 02/04/20 02/04/20 lisinopril 40 mg tablet 40 mg PO DAILY 02/04/20 02/04/20 metoprolol succinate 100 mg 100 mg PO BID 02/04/20 02/04/20 tablet,extended release 24 hr oxycodone-acetaminophen 10 mg-325 1 tablet PO Q6H PRN Pain 02/04/20 02/04/20 mg tablet Allergies Allergy/AdvReac Type Severity Reaction Status Date / Time No Known Allergies Allergy Unverified 08/10/20 17:20 Review of Systems Review of Systems: Pertinent positives per HPI. Patient denies any fever, chills, rash, headache, visual changes, dizziness, cough, shortness of breath, chest pain, palpitations, nausea, vomiting, diarrhea, constipation, abdominal pain, or any urinary issues. [facility] Past Medical History Medical History Chronic anemia Essential hypertension Gout Melanoma Of the right 5th finger, which was completely excised as well as sentinel lymph node sampling, which was reportedly positive. He received chemotherapy for 1 year in 2000. Osteoarthritis Surgical History Surgical History History of bilateral knee arthroplasty History of melanoma excision Resected in 2000, with 5th finger amputation and sentinel lymph node dissection. Status post rotator cuff repair Bilateral. Family History Family History Mother Hypertension Father Malignant neoplasm of prostate Social History Social History Social History: Surrogate decision maker: Cathie Keane. Code status: Full code. Smoking status: Light tobacco smoker Tobacco type: cigars Additional smoking assessment comments: Smokes 5 cigars a week. Alcohol intake: never Substance use: never Additional living arrangements comments: Patient lives with in [place]. 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 Spiritual care concerns: No Agree to blood products: Yes Comments At the time of my signature, I reviewed and agree with the nursing past medical, surgical, social, and family history. There is no relevant family history pertinent to the patient complaint. Exam Narrative: General: Well-developed, well nourished, in no apparent distress Head: Normocephalic, atraumatic Eyes: Pupils equally round and reactive to light bilaterally, EOM intact, sclera and conjunctive clear, no discharge, lids normal Ears: TMs intact and clear, ear canals clear, no drainage, grossly hearing normal. Nose: Nares patent, no discharge, no inflammation, no sinus tenderness. Mouth: Oral pharynx without lesions or masses, good dentition, MMM. Tenderness to palpation over the TMJ joint, no crepitus felt with opening and closing of th
[2022-08-28 17:13] VITALS: BP 148/74; PULSE 74; RESP 16; TEMP 36.8; O2SAT 99
== END 2022-08-28 17:13 | disposition home or self-care (01) ==
PROVIDERS: Emergency Provider Nurse Practitioner Family; PCP Family Medicine
DX: M26.601 Right temporomandibular joint disorder, unspecified (principal); F17.290 Nicotine dependence, other tobacco product, uncomplicated; I10 Essential (primary) hypertension; M10.9 Gout, unspecified; M19.90 Unspecified osteoarthritis, unspecified site
CPT/HCPCS: 99213; G0463

== ENCOUNTER → 2023-04-18 10:41 | Outpatient (CLI) | payer MEDICARE, SELFPAY ==
--- NOTE | ~2023-04-18 | XR_ITS ---
Lumbosacral Spine: AP and lateral views Clinical History: Pain Findings: There is 26 degree dextroscoliosis of the lumbar spine. No fracture or subluxation evident otherwise. There is severe degenerative disc narrowing at L2-L3, L3-L4, L4-L5, and L5-S1. There is ad vanced facet arthropathy at L4-L5 and L5-S1. The intervertebral disc spaces are preserved. The sacro iliac joints are normally outlined. Impression: Moderate to advanced degenerative spondylosis, as detailed above. 26 degree dextroscoliosis. Reviewed, dictated and finalized at location M. Impression: Moderate to advanced degenerative spondylosis, as detailed above. 26 degree dextroscoliosis.
--- NOTE | ~2023-04-18 | XR_ITS ---
AP view of the pelvis and AP and lateral views of the right hip Clinical history: Pain Findings: No acute fracture or dislocation is seen. Osseous alignment is anatomic. Bilateral hip and SI joint spaces are preserved. Soft tissues are unremarkable. Impression: No significant abnormality is seen. Reviewed, dictated and finalized at [facility]. Impression: No significant abnormality is seen.
--- NOTE | ~2023-04-18 | XR_ITS ---
Right Hand Technique: PA, oblique, and lateral views were obtained. Clinical History: Pain COMPARISON: 05/02/2017 Findings: No acute fracture is seen. Status post prior amputation of the fifth digit, unchanged. Ther e is mild degenerative change of the third and fourth PIP joints. There is moderate degenerative heredia ge of the interphalangeal joint of the thumb and the first MCP joint. There is probable malalignment of the carpal bones, with the capitate overlapping the lunate on the PA projection.. Soft tissues are unremarkable. Impression: No acute fracture. Malalignment of the carpal bones and the wrist. Questionable perilunate dislocation. Consider dedicat ed wrist radiographs for further evaluation. Prior fifth digit amputation, unchanged. Reviewed, dictated and finalized at location M. Impression: No acute fracture. Malalignment of the carpal bones and the wrist. Questionable perilunate disloca tion. Consider dedicated wrist radiographs for further evaluation. Prior fifth digit amputation, unchanged.
== END ==
PROVIDERS: PCP Family Medicine; Visit Provider Family Medicine
DX: M79.641 Pain in right hand (principal); M25.551 Pain in right hip; M54.50 Low back pain, unspecified; M43.06 Spondylolysis, lumbar region; M41.87 Other forms of scoliosis, lumbosacral region; Z89.021 Acquired absence of right finger(s)
CPT/HCPCS: 72100; 73130; 73502

== ENCOUNTER 2024-10-31 09:25 | Emergency (ER) | payer OTHER, MEDICARE, SELFPAY ==
--- NOTE | ~2024-10-31 | XR_ITS ---
XR sacrum coccyx min 2V DATE: 10/31/2024 10:28 INDICATION: Patient fell on tailbone last night. Pain. TECHNIQUE: AP, angled AP and lateral views COMPARISON: None FINDINGS: There is dextroscoliosis of the lumbar spine and severe degenerative disc disease at L4-5 a nd L5-S1, moderately severe degenerative disc disease at L3-4. Normal alignment of the pubic symphysis and sacroiliac joints. No sacral or coccygeal fracture or bone destruction is detected. IMPRESSION: Dextroscoliosis and multilevel degenerative disease of the lumbar and lumbosacral spine No sacral or coccygeal fracture is detected Reviewed, dictated and finalized at location A. [employer] IMPRESSION: Dextroscoliosis and multilevel degenerative disease of the lumbar a nd lumbosacral spine No sacral or coccygeal fracture is detected
--- NOTE | ~2024-10-31 | XR_ITS ---
XR wrist RT min 3V DATE: 10/31/2024 10:28 INDICATION: Patient fell last night. Pain and swelling right wrist. TECHNIQUE: 4 views COMPARISON: 04/18/2023 right wrist FINDINGS: There is prominent diffuse soft tissue swelling of the right wrist. 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 There is severe radial navicular joint space narrowing. T here is severe osteoarthritis at the first metacarpophalangeal and first interphalangeal joints. Status post amputation of the fifth metacarpal bone and digit. No recent fracture or dislocation, periosteal reaction or bone destruction is noted. Osteopenia. IMPRESSION: Status post amputation of the fifth metacarpal and fifth digit Scapholunate dissociation No recent fracture or dislocation is detected Polyarticular osteoarthritis, involving particularly the radiocarpal, first metacarpophalangeal and i nterphalangeal joints Reviewed, dictated and finalized at location A. [employer] IMPRESSION: Status post amputation of the fifth metacarpal and fifth digit Scapholunate dissociation No recent fracture or dislocation is detected Polyarticular osteoarthritis, involving particularly the radiocarpal, first met acarpophalangeal and interphalangeal joints
[2024-10-31 09:54] VITALS: BP 166/84; PULSE 74; RESP 18; TEMP 36.6; O2SAT 98
--- NOTE | 2024-10-31 10:07 | ED_ITS ---
HPI - Extremity Injury (Upper) General Chief Complaint: Extremity Injury, Upper Stated Complaint: INJURED R WRIST/BOTH ARMS/TAILBONE/HIP Time Seen by Provider: 10/31/24 10:07 Source: patient Mode of arrival: ambulatory Limitations: no limitations History of Present Illness HPI narrative: 69 yo M presents with c/o pain to bilateral shoulders, R wrist and tailbone. Fell 10/31 in icy parking lot. Slipped near a lightpole and landed on his back. Somehow hurt his wrist. Reports both shoulders are aching but has normal ROM to L shoulder and R shoulder ROM at baseline, has rotator cuff tear. R wrist continues to hurt but swelling has decreased. Low back is tight, painful when sitting. Ambulatory with steady gait. No loss of bowel or bladder. Has been taking tylenol at home to treat pain. Did not his head, no LOC. all Systems reviewed and negative except as noted above. Related Data Home Medications ?Medication ?Instructions ?Recorded ?Confirmed ?Last Taken ?Type allopurinol 100 mg tablet 100 mg PO DAILY 02/04/20 10/31/24 Unknown History amlodipine 10 mg tablet 10 mg PO BID 02/04/20 10/31/24 Unknown History diclofenac sodium 75 mg 75 mg PO DAILY 02/04/20 10/31/24 Unknown History tablet,delayed release hydrochlorothiazide 25 mg tablet 25 mg PO DAILY 02/04/20 10/31/24 Unknown History lisinopril 40 mg tablet 40 mg PO DAILY 02/04/20 10/31/24 Unknown History metoprolol succinate 100 mg 100 mg PO BID 02/04/20 10/31/24 Unknown History tablet,extended release 24 hr Allergies Allergy/AdvReac Type Severity Reaction Status Date / Time No Known Allergies Allergy Verified 10/31/24 09:53 Review of Systems Review of Systems: CONSTITUTIONAL: Denies fever, chills, or sweats. EYES: Denies visual changes, redness, or discharge. ENT: Denies rhinorrhea, congestion, sore throat, or otalgia. CARDIOVASCULAR: Denies chest pain, palpitations, or edema. RESPIRATORY: Denies cough or dyspnea. GASTROINTESTINAL: Denies abdominal pain, nausea, vomiting, or diarrhea. GENITOURINARY: Denies dysuria or hematuria. SKIN: Denies rash or itching. MUSCULOSKELETAL: reports low/ tailbone back pain, right wrist pain, bilateral shoulder pain. NEUROLOGIC: Denies headache, numbness, or weakness. PSYCHIATRIC: Denies anxiety or depression. All other systems reviewed are negative, except as documented in HPI. [facility] Past Medical History Medical History Chronic anemia Essential hypertension Gout Melanoma Of the right 5th finger, which was completely excised as well as sentinel lymph node sampling, which was reportedly positive. He received chemotherapy for 1 year in 2000. Osteoarthritis Surgical History Surgical History History of bilateral knee arthroplasty History of melanoma excision Resected in 2000, with 5th finger amputation and sentinel lymph node dissection. Status post rotator cuff repair Bilateral. Family History Family History Mother Hypertension Father Malignant neoplasm of prostate Social History Social History Social History: Surrogate decision maker: Cathie Keane. Code status: Full code. Smoking status: Light tobacco smoker Tobacco type: cigars Additional smoking assessment comments: Smokes 5 cigars a week. Alcohol intake: never Substance use: never Additional living arrangements comments: Patient lives with in [place]. 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 Spiritual care concerns: No Agree to blood products: Yes Comments At time of signature, agree with nursing past medical, surgical, social and family history. There is no relevant family history pertinent to the presenting complaint. Exam Narrative: GENERAL: This is a well-nourished, well-developed patient, in no apparent distress. HEAD: normocephalic, atraumatic. EYES: PERRL. Sclera clear/white. Vision is grossly intact. EARS: External ears normal NOSE: External nose normal NECK: Neck supple, non-tender without lymphadenopathy, masses or thyromegaly. CARDIOVASCULAR: Regular rate and rhythm without murmurs, gallops, or rubs. RESPIRATORY: Clear to auscultation. Breath sounds equal bilaterally. No wheezes, rales, or rhonchi. SKIN: warm, Dry, intact with no suspicious lesions or rash, good texture and turgor. NEURO: awake, alert, and oriented to person, place and time. There were no obvious focal neurologic abnormalities. EXTREMITIES: Tenderness to radial aspect right wrist with moderate swelling. There is some deformity and swelling And also decreased range of motion which could be degenerative/ arthritis related. bilateral shoulders have generalized tenderness on palpation, no deformity, normal range of motion, no point tenderness concerning for fracture. BACK: Tenderness to tailbone area, no deformity no swelling or bruising noted. Generalized muscular tenderness and spasm. Course Course Level of Care: Express Care Visit Vital Signs Vital signs: Vital Signs Temperature 36.6 C 10/31/24 09:54 Pulse Rate 74 10/31/24 09:54 Respiratory Rate 18 10/31/24 09:54 Blood Pressure 166/84 H 10/31/24 09:54 Pulse Oximetry 98 10/31/24 09:54 Oxygen Delivery Room Air 10/31/24 09:54 Temperature 36.6 C 10/31/24 09:54 Pulse Rate 74 10/31/24 09:54 Respiratory Rate 18 10/31/24 09:54 Blood Pressure 166/84 H 10/31/24 09:54 Pulse Oximetry 98 10/31/24 09:54 Oxygen Delivery Room Air 10/31/24 09:54 Reviewed MDM - Extremity Injury (Upper) MDM Narrative Medical decision making narrative: sacral and right wrist x-ray negative for fracture. Discussed results with patient. X-rays of shoulders not indicated. Patient is well-appearing, nontoxic. Ambulatory with steady gait. Recommend [id number] medications to treat pain. Recommend follow-up with primary care physician if pain is not improving. Patient is aware of diagnosis, understands and agrees to treatment plan. Anticipatory guidance given. Patient agrees to follow-up as directed and is aware of reasons to seek care at the emergency department. Portions of this record may have been created with voice recognition software Differential Diagnosis Differential diagnosis: Likely sprain and strain of wrist and fracture of wrist Imaging Data My impression: agree with radiologist Radiologist's impression: XR wrist RT min 3V DATE: 10/31/2024 10:28 INDICATION: Patient fell last night. Pain and swelling right wrist. TECHNIQUE: 4 views COMPARISON: 04/18/2023 right wrist FINDINGS: There is prominent diffuse soft tissue swelling of the right wrist. 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 There is severe radial navicular joint space narrowing. There is severe osteoarthritis at the first metacarpophalangeal and first interphalangeal joints. Status post amputation of the fifth metacarpal bone and digit. No recent fracture or dislocation, periosteal reaction or bone destruction is noted. Osteopenia. IMPRESSION: Status post amputation of the fifth metacarpal and fifth digit Scapholunate dissociation No recent fracture or dislocation is detected Polyarticular osteoarthritis, involving particularly the radiocarpal, first metacarpophalangeal and interphalangeal joints XR sacrum coccyx min 2V DATE: 10/31/2024 10:28 INDICATION: Patient fell on [place] last night. Pain. TECHNIQUE: AP, angled AP and lateral views COMPARISON: None FINDINGS: There is dextroscoliosis of the lumbar spine and severe degenerative disc disease at L4-5 and L5-S1, moderately severe degenerative disc disease at L3-4. Normal alignment of the pubic symphysis and sacroiliac joints. No sacral or coccygeal fracture or bone destruction is detected. IMPRESSION: Dextroscoliosis and multilevel degenerative disease of the lumbar and lumbosacral spine No sacral or coccygeal fracture is detected Discharge Plan Discharge Clinical Impression: Sacral contusion, Right wrist sprain, Bilateral shoulder pain, Fall due to ice or snow Patient Disposition: Home, Self-Care Condition: Stable Instructions: Contusion in Adults (ED), Wrist Sprain (ED) Additional Instructions: The x-ray of your right wrist and sacrum were negative for fracture. Take ibuprofen or Tylenol every 6-8 hours as needed for pain. Alternate between ice and heat. Follow-up with your primary care physician if pain is not improving. Patient Language: Kyrgyz Prescriptions: No Action metoprolol succinate 100 mg tablet extended release 24 hr 100 mg PO BID allopurinol 100 mg tablet 100 mg PO DAILY amlodipine 10 mg tablet 10 mg PO BID diclofenac sodium 75 mg tablet,delayed release (DR/EC) 75 mg PO DAILY hydrochlorothiazide 25 mg tablet 25 mg PO DAILY lisinopril 40 mg tablet 40 mg PO DAILY Follow-up/Referrals: Manuel,Al Boyd MD [Primary Care Provider] - Time of Disposition: 10:59
== END 2024-10-31 11:01 | disposition home or self-care (01) ==
PROVIDERS: Emergency Provider Nurse Practitioner Family; PCP Family Medicine
DX: S63.501A Unspecified sprain of right wrist, initial encounter (principal); S30.0XXA Contusion of lower back and pelvis, initial encounter; W00.0XXA Fall on same level due to ice and snow, initial encounter; M25.512 Pain in left shoulder; M25.511 Pain in right shoulder; F17.290 Nicotine dependence, other tobacco product, uncomplicated; I10 Essential (primary) hypertension; M10.9 Gout, unspecified; M19.90 Unspecified osteoarthritis, unspecified site; Z85.820 Personal history of malignant melanoma of skin; Z92.21 Personal history of antineoplastic chemotherapy
CPT/HCPCS: 72220; 73110; 99214; G0463